=== PATIENT | female | born 1975 | race Caucasian/White ===

== ENCOUNTER → 2020-08-29 11:08 | Outpatient (CLI) | payer OTHER, SELFPAY ==
--- NOTE | ~2020-08-29 | MM_ITS ---
EXAMINATION: MM screening reid BI w angel HISTORY: Screening TECHNIQUE: Craniocaudal and mediolateral oblique 3-D tomosynthesis images were obtained and synthetic 2-D images were generated. CAD analysis was submitted and interpreted. COMPARISON: Comparison to multiple prior studies sequentially, with oldest reviewed study dated 05/15. BREAST PARENCHYMAL COMPOSITION: The breasts are heterogeneously dense, which may obscure small masses . FINDINGS: There is no evidence of suspicious mass, calcification, or architectural distortion to sugg est malignancy in either breast. There has been no suspicious interval change. IMPRESSION: 1. No mammographic evidence of malignancy. 2. Recommend routine screening mammography in one year. BI-RADS Category 1: Negative Reviewed, dictated and finalized at location A.
== END ==
PROVIDERS: Visit Provider Family Medicine
DX: Z12.31 Encounter for screening mammogram for malignant neoplasm of breast (principal)
CPT/HCPCS: 77063; 77067

== ENCOUNTER → 2021-10-01 14:52 | Outpatient (CLI) | payer BC, SELFPAY ==
--- NOTE | ~2021-10-01 | MM_ITS ---
EXAMINATION: MM screening [facility] BI w angel HISTORY: Screening mammogram TECHNIQUE: Craniocaudal and mediolateral oblique 3-D tomosynthesis images were obtained and synthetic 2-D images were generated. CAD analysis was submitted and interpreted. COMPARISON: 08/29/2020, 10/07/2019, 08/06/2018 BREAST PARENCHYMAL COMPOSITION: The breasts are heterogeneously dense, which may obscure small masses . FINDINGS: There is no evidence of suspicious mass, calcification, or architectural distortion to sugg est malignancy in either breast. There has been no suspicious interval change. IMPRESSION: 1. No mammographic evidence of malignancy. 2. Recommend routine screening mammography in one year. BI-RADS Category 1: Negative Reviewed, dictated and finalized at location A. [employer]IVER
== END ==
PROVIDERS: PCP Family Medicine; Visit Provider Family Medicine
DX: Z12.31 Encounter for screening mammogram for malignant neoplasm of breast (principal)
CPT/HCPCS: 77063; 77067

== ENCOUNTER → 2022-07-15 08:04 | Outpatient (CLI) | payer OTHER, SELFPAY ==
--- NOTE | ~2022-07-15 | MMUS_ITS ---
EXAMINATION: MM diagnostic reid LT w angel, US breast LT limited HISTORY: Palpable mass in the lower outer quadrant of the breast near the nipple TECHNIQUE: Craniocaudal, mediolateral, and mediolateral oblique 3-D tomosynthesis images of the left breast were performed and synthetic 2-D images were generated. CAD analysis was submitted and interpr eted. High resolution limited left breast ultrasound was performed. COMPARISON: 10/01/2021, 08/29/2020, 10/07/2019 BREAST PARENCHYMAL COMPOSITION: The breasts are heterogeneously dense, which may obscure small masses . FINDINGS: MAMMOGRAPHIC FINDINGS: There is no suspicious mass, calcification, or architectural distortion to suggest malignancy. There has been no suspicious interval change. No mammographic correlate is identified for the reported pal pable abnormality of concern ULTRASOUND: No sonographic correlate is identified for the reported palpable abnormality of concern. Incidental n ote is made of a 5 mm x 3 mm oval, circumscribed, parallel, hypoechoic mass at the 2:00 location 4 cm from the nipple with no posterior features or internal vascularity. IMPRESSION: 1. Probably benign left breast mass. 2. Recommend 6 month follow-up left diagnostic mammogram and ultrasound. BI-RADS category 3, probably benign findings. Reviewed, dictated and finalized at location A. IMPRESSION: 1. Probably benign left breast mass. 2. Recommend 6 month follow-up left diagnostic mammogram and ultrasound. BI-RADS category 3, probably benign findings.
== END ==
PROVIDERS: PCP Family Medicine; Visit Provider Family Medicine
DX: N63.21 Unspecified lump in the left breast, upper outer quadrant (principal)
CPT/HCPCS: 76642; 77061; 77065; G0279

== ENCOUNTER → 2023-01-08 09:25 | Outpatient (CLI) | payer OTHER, SELFPAY ==
--- NOTE | ~2023-01-08 | MMUS_ITS ---
EXAMINATION: MM diagnostic reid BI w angel, US breast BI complete HISTORY: Left breast mass TECHNIQUE: Bilateral full field and spot ML, MLO and CC 3-D tomosynthesis images were performed and s ynthetic 2-D images were generated. CAD analysis was submitted and interpreted. High resolution bilat eral complete breast ultrasound examination including all 4 quadrants and subareolar areas was perfor med. COMPARISON: 07/15/2022 left diagnostic mammogram and limited left breast ultrasound 10/01/2021, 08/29/2020, 10/07/2019 bilateral screening mammogram examinations BREAST PARENCHYMAL COMPOSITION: The breasts are heterogeneously dense, which may obscure small masses . FINDINGS: MAMMOGRAPHIC FINDINGS: There is bilateral mammographic asymmetry involving primarily the upper outer quadrants. No reproducible suspicious mass, malignant calcification, skin thickening or retraction is detected. ULTRASOUND: No suspicious solid lesion or shadowing of either breast is detected. Right breast: 12:00 3 cm from nipple: 2.3 x 4.6 mm, 2 x 3.2 mm and 3.6 x 5 mm cysts 1:00 1 cm from nipple: 3 x 3.5 mm circumscribed hypoechoic lesion without posterior shadowing, likely benign 6:00 3 cm from nipple: Benign-appearing lymph node 10:00 7 cm from nipple: 2 x 5.5 mm and 2.4 x 4.2 mm cysts 11:00 4 cm from nipple: 2.9 x 4.5 mm circumscribed parallel sonolucency, likely a small cyst, with no internal vascularity Left breast: 2:00 5 cm from nipple: 2.7 x 3.8 mm cyst with through transmission and posterior enhancement 3:00 6 cm from nipple: 2.9 x 4 mm cyst 9:00 3 cm from nipple: 2.3 mm cyst 12:00 subareolar area: 3 mm cyst IMPRESSION: 1. Benign findings 2. Routine annual mammographic screening is recommended BI-RADS Category 2: Benign finding(s). Reviewed, dictated and finalized at location A. BROKER IMPRESSION: 1. Benign findings 2. Routine annual mammographic screening is recommended BI-RADS Category 2: Benign finding(s).
== END ==
PROVIDERS: PCP Nurse Practitioner Obstetrics & Gynecology; Visit Provider Family Medicine
DX: N60.12 Diffuse cystic mastopathy of left breast (principal)
CPT/HCPCS: 76641; 77062; 77066; G0279

== ENCOUNTER → 2023-03-17 10:15 | Outpatient (CLI) | payer OTHER, SELFPAY ==
--- NOTE | ~2023-03-17 | CT_ITS ---
EXAMINATION: CT sinus wo con DATE: 03/17/2023 10:27 INDICATION: Chronic sinusitis. TECHNIQUE: Computed tomography (CT) of the paranasal sinuses was performed without intravenous contra st. Iterative reconstruction technique was employed. The dose-length product was 299.47 mGy-cm. COMPARISON: None FINDINGS: The frontal, ethmoid, sphenoid, and maxillary sinuses are clear. There is leftward deviatio n of the nasal septum. There is deja bullosa involving right middle turbinate. The ostiomeatal unit s are patent. The mastoid air cells are normal. IMPRESSION: 1. Leftward deviation of the nasal septum. Reviewed, dictated and finalized at location A.
== END ==
PROVIDERS: PCP Family Medicine; Visit Provider Otolaryngology
DX: J32.9 Chronic sinusitis, unspecified (principal); J34.2 Deviated nasal septum
CPT/HCPCS: 70486

== ENCOUNTER 2024-05-17 11:34 | Outpatient (CLI) | payer OTHER, SELFPAY ==
--- NOTE | ~2024-05-17 | XR_ITS ---
3 VIEWS LUMBAR SPINE Ordering provider: Andrae Dutton, DC CCST History: . Low back pain . Comparison: None. FINDINGS: VERTEBRAL BODIES: No visible fracture or subluxation. DISK SPACES: Narrowing of the disc L4-L5 and L5-S1. SOFT TISSUES: Normal. IMPRESSION: No acute osseous abnormality lumbar spine. Narrowing of the disc L4-L5 and L5-S1. Reviewed, dictated and finalized at location A.
--- NOTE | ~2024-05-17 | XR_ITS ---
3 VIEWS THORACIC SPINE Ordering provider: Andrae Dutton, DC CCST History: . Mid back pain . Comparison: None. FINDINGS: VERTEBRAL BODIES: Normal height and alignment. No visible fracture or subluxation. Degenerative rausch es of the spine. DISK SPACES: Normal. SOFT TISSUES: Normal. IMPRESSION: No acute osseous abnormality of the thoracic spine. Reviewed, dictated and finalized at location A.
--- NOTE | ~2024-05-17 | XR_ITS ---
[id number] Ordering provider: Andrae Dutton, DC CCST History: . Neck pain . Comparison: None. FINDINGS: VERTEBRAL BODIES: Normal height and alignment. No visible fracture or subluxation. The dens is intact . DISK SPACES: Narrowing of the disc C4-C5, C5-C6 and C6-C7. Multilevel uncovertebral joint osteoarthri tic changes. PARASPINOUS SOFT TISSUES: No prevertebral soft tissue swelling. IMPRESSION: No acute osseous abnormality cervical spine. Multilevel degenerative disc disease. Reviewed, dictated and finalized at location A.
== END 2024-05-17 11:35 ==
LOC: MICIMG 11:38
PROVIDERS: PCP Chiropractor; Visit Provider Chiropractor
DX: M50.30 Other cervical disc degeneration, unspecified cervical region (principal); M54.6 Pain in thoracic spine; M54.50 Low back pain, unspecified
CPT/HCPCS: 72040; 72070; 72100

== ENCOUNTER 2025-02-20 14:50 | Outpatient (CLI) | payer OTHER, SELFPAY ==
--- NOTE | ~2025-02-20 | XR_ITS ---
XR knee RT min 4V 02/20/2025 15:07 Indication: Right knee Procedure: 4 views right knee Comparison: No prior studies for comparison. Findings: Mild patellofemoral osteoarthritis. No fracture, subluxation or dislocation. No significant joint effusion. No foreign bodies. Impression: 1: Mild patellofemoral compartment osteoarthritis. Reviewed, dictated and finalized at location A. Impression: 1: Mild patellofemoral compartment osteoarthritis.
== END 2025-02-20 14:51 | disposition home or self-care (01) ==
LOC: MICIMG 14:52
PROVIDERS: PCP Chiropractor; Visit Provider Chiropractor
DX: M17.11 Unilateral primary osteoarthritis, right knee (principal)
CPT/HCPCS: 73564